=== PATIENT | male | born 1995 | race Caucasian/White ===

== ENCOUNTER → 2017-12-19 16:58 | Outpatient (CLI) | payer OTHER, SELFPAY ==
--- NOTE | 2017-12-19 17:05 | DI.MRI.S_ITS ---
PROCEDURE: MR ANKLE RT WO CON INDICATIONS: RIGHT ANKLE SPRAIN TECHNIQUE: Noncontrast sagittal T1 spin echo and T2 fast spin echo with fat saturation, axial proton density fast spin echo and T2 fast spin echo with fat saturation, coronal T1 spin echo and T2 fast spin echo with fat saturation through the ankle/hindfoot. COMPARISON: None. FINDINGS: Image quality: Excellent. Bones and joints: No bone marrow contusions or acute fractures. There are small corticated avulsion fracture fragments along the anterior and inferior aspects of the lateral malleolus without associated bone marrow edema compatible with chronic fractures. No hindfoot coalitions. No osteochondral injuries of the talar dome. No pathologic joint effusions. Medial structures: The posterior tibialis, flexor digitorum longus, and flexor hallucis longus tendons are intact with minimal tenosynovial fluid. The posterior tibial neurovascular bundle appears normal within the tarsal tunnel, without extrinsic mass effect. The deep layer of the deltoid ligament is attenuated with associated ligamentous fluid consistent with a moderate sprain. The superficial layer appears grossly intact. The spring ligament appears intact. Lateral structures: There are small avulsion fragment associated with the anterior talofibular and calcaneofibular elements anterior and inferior to the lateral malleolus, respectively. The posterior talofibular ligament is attenuated in signal with periligamentous edema consistent with sequela of a moderate sprain. More superiorly, the anterior and posterior tibiofibular ligaments appear intact, as is the intermalleolar ligament. The tibiofibular syndesmosis is normal in width at 2 mm or less. The peroneus longus and brevis tendons demonstrate normal location with flattening of the peroneus brevis. There is a small amount of tenosynovial fluid along the peroneal tendons. Adjacent bony peroneal tubercle and retrotrochlear prominence are normal in size. The sinus tarsi demonstrates normal fatty signal, without edema, fibrosis, or cyst formation. Visualized sinus tarsi components (cervical ligament, interosseous talocalcaneal ligament, roots of the inferior extensor retinaculum) appear normal. The calcaneonavicular and calcaneocuboid components of the bifurcate ligament appear intact. The dorsal calcaneocuboid ligament appears intact. Anterior structures: The tibialis anterior, extensor hallucis longus, and extensor digitorum longus tendons appear intact. The dorsal talonavicular ligament appears intact. Posterior and plantar structures: Achilles tendon is intact. Medial and lateral bands of the plantar fascia are of normal thickness. No abductor digiti quinti muscle atrophy to suggest [place] neuropathy. IMPRESSION: 1. Small avulsion fragments along the lateral malleolus associated with prior avulsion fractures at the attachments of the anterior talofibular and tibiofibular ligaments. There is also sequela of a moderate sprain of the posterior talofibular ligament. 2. Moderate sprain of the deltoid ligament involving the deep layer. Dictated by: Amor Ryder M.D. on 12/20/2017 at 11:18 Approved by: Amor Ryder M.D. on 12/20/2017 at 11:27
== END ==
PROVIDERS: Visit Provider Family Medicine
DX: S82.61XS Displaced fracture of lateral malleolus of right fibula, sequela (principal); S93.421A Sprain of deltoid ligament of right ankle, initial encounter
CPT/HCPCS: 73721